=== PATIENT | female | born 1985 | race Caucasian/White ===

== ENCOUNTER 2016-10-01 16:02 | Day surgery (SDC) | payer OTHER ==
[2016-10-01] VITALS (7 sets, daily range): BP systolic 108–122; BP diastolic 59–73; PULSE 64–103; RESP 16–21; O2SAT 99–100
[~2016-10-01] VITALS: Ht 165.1 cm; Wt 60.6 kg
[~2016-10-01 16:02] MED LIST: BCP
[2016-10-01] MEDS ORDERED: fentaNYL-PF 50 mCg/mL 2 mL Inj ONE (16:03)
[2016-10-01] MEDS ORDERED: EPHEDrine/NS 5 mg/mL 5 mL Syringe ONE (16:03)
[2016-10-01] MEDS ORDERED: Succinylcholine Chloride 20 mg/mL 5 mL Inj ONE (16:03)
[2016-10-01] MEDS ORDERED: Propofol 10,000 mCg/mL 20 mL Inj ONE (16:03)
[2016-10-01] MEDS ORDERED: Phenylephrine/NS 100 mCg/mL 10 mL Syringe IVPUSH ONE (16:03)
[2016-10-01] MEDS ORDERED: Dexamethasone 4 mg/mL Inj ONE (16:03)
[2016-10-01] MEDS ORDERED: Lidocaine PF 1% 30 mL Inj ONE (16:03)
[2016-10-01] MEDS ORDERED: MetoCLOpramide 5 mg/mL 2 mL Inj ONE (16:03)
[2016-10-01] MEDS ORDERED: Ondansetron 2 mg/mL 2 mL Inj ONE (16:03)
[2016-10-01] MEDS ORDERED: Lactated Ringer's 1,000 ML IV ONE ×2 (16:20→17:14)
[2016-10-01] MEDS ORDERED: PNV1TABL81 PO (16:26)
[2016-10-01] MEDS ORDERED: Lactated Ringer's 1,000 ML IV SCH (17:14)
[2016-10-01] MEDS ORDERED: Lactated Ringer's 500 ML IV PRN (17:14)
--- NOTE | 2016-10-01 17:14 | PCM.HPANE ---
Patient Data Date of Service: Oct 01, 2016 Surgeon Admitting Provider: Attending Provider:Chandan Abebe MD Primary Care Physician:Swetha Taylor Other Provider:Eloina Moore Anesthesia Reason for Visit Missed Ab D&C Ht/WT & BMI Height (Feet): 5 Height (Inches): 5 Weight (Kilograms): 60.6 Body Mass Index 22.00, 22.00 Allergies Coded Allergies: No Known Allergies (Unverified , 10/01/16) Past Anesthesia History Anesthesia History: Denies:: Abnormal Airway, Anesthesia Reactions, Difficult Intubation, Fam Anesthesia Reaction, Fam Malignant Hypertherm, Malignant Hyperthermia Diabetes History Hx Diabetes?: No MRSA MRSA: No Medications Hypertension Medication: No Home Meds Incl Beta Dann: No Reported Medications Pnv No.122/Iron/Folic Acid ( Multi Tablet)27 Mg Iron-800 Mcg Tablet1 Each PO DAILY 10/01/16 [Bcp] No Conflict Check 02/10/13 History History of ENT Problems?: No HEENT History: Denies:: Abnormal Airway Cataracts Difficult Intubation Dysphagia Glaucoma Hearing Problem Sinus Problem TMJ Hx of Heart Problems?: No Cardiovascular History: Denies:: AICD Abdominal Aortic Aneurism Atrial Fibrillation Cardiac Surgery Chest Pain Congestive Heart Failure Coronary Artery Disease Edema Heart Murmur Hypertension Irregular Heartbeat Pacemaker Peripheral Vascular Rheumatic Fever Thrombophlebitis Valvular Heart Disease Hx of Respiratory Problem?: No Respiratory History: Denies:: Asthma COPD Chest Surgery Cough Dyspnea Emphysema Hemoptysis Oxygen Administration Pneumonia Pulmonary Embolism Tuberculosis Use of C-PAP Machine Use of Inhalers / NEBS Hx Neurologic Problems?: No Neurological History: Denies:: Alzheimer's Disease CVA Dementia Dizziness Headaches Multiple Sclerosis Parkinson's Disease Seizures TIA Hx of GI Problems?: No Gastrointestinal History: Denies:: Cirrhosis Diverticulitis Gall Bladder Disease Gastroesphageal Reflux Gastrointestinal Bleeding Heartburn Hepatitis Hiatal Hernia Liver Disease Rectal Bleeding Hx of Problems?: No Genitourinary History: Denies:: HX of Hemodialysis Kidney Stones Urinary Tract Infection HX of Peritoneal Dialysis: No Female Hx: Positive for:: Currently (Missed AB) Endometriosis (UTERINE FIBROIDS) Denies:: Pelvic Inflammatory Problems with Breasts? Hx Musculoskeletal Problems?: No Musculoskeletal History: Denies:: Back Injury Degenerative Joint Fibromyalgia Joint Replacement Musculoskeletal Trauma Myasthenia Gravis Osteoarthritis Rheumatoid Arthritis Systemic Lupus Hx of Psycho/Social Problems?: No Psycho Social History: Positive for:: Hx Depression (JUVENILE DEPRESSION RESOVLED) Denies:: Anxiety Bipolar Disorder Suicide Attempt Hx Surgeries?: Yes (TONSILECTOMY, SEPTOPLASTY, MELANOMA ON BACK) Hx Any Other Health Problems?: No Other History: Denies:: Cancer Endocrine Disease Thyroid Disease History Blood Transfusions: Positive for:: Accept Blood Products? Denies:: Blood Transfuse Reaction Blood Transfusions Hx Diabetes: No Hx Alcohol Use: NoAlcoholic Drinks Per Day: SOCIALLYHx Substance Use: NoHave You Smoked inLast 12 mo: No Stop/Bang Treated for Sleep Apnea?: No Do You Have a CPAP Machine?: No S-Snoring: Do You Snore Loudly: No T-Tired: feel tired, fatigued: No O-Obsered: Observed not breath: No P-Blood Pressure: treated: No B- Body Mass Index > 35 kg/m2: No A- Age over 50: No N- Neck Large Circumference: No G- Gender Male: No RENATO Total Score: 0 RENATO Risk Assessment: Low Risk, <3 Yes Risk Assessment Category Category 1A: Patient has history of documented sleep apnea, and HAS NOT received any narcotic, sedative or anesthesia administration during this stay. Category 1B: Patient has history of documented sleep apnea, and HAS received any narcotic , sedative or anesthesia administration during this stay Category 2: Patient has SUSPECTED Obstructive Sleep Apnea, and HAS received any narcotic , sedative or anesthesia administration during this stay. Category 3: Patient has SUSPECTED Obstructive Sleep Apnea and HAS NOT received narcotic, sedative or anesthesia administration during this stay. Category 4: Outpatient in Procedural Areas with known sleep apnea or who screen positive for High Risk via the STOP/BANG questionnaire. Exam Exam Vital Signs Vital Signs Date Time Temp Pulse Resp B/P Pulse Ox O2 Delivery O2 Flow Rate FiO2 10/01/16 16:15 36.3 64 16 112/70 100 Room Air General Appearance: Alert, Oriented X3, Cooperative HEENT/AIRWAY: MP 1, Neck Movement (Full) Lungs: Clear to Auscultation, Normal Air Movement Heart: Regular Rate/Rhythm, Normal S1, Normal S2 Meds/Labs/Diagnostics Admission Meds Current Medications Lactated Ringer's (Lr) 1,000 ml @ ud STK-MED ONCE IV Last administered on 10/01t 16:20; Start 10/01/16 at 16:20; Stop 10/01/16 at 16:25; Status DC Doxycycline Hyclate (VibraTabs) 100 mg STK-MED ONCE .ROUTE Last administered on 10/01/16t 16:55; Start 10/01/16 at 16:53; Stop 10/01/16 at 16:54; Status DC Plan Impression Patient chart reviewed, patient interviewed and anesthestic plan with risks, benefits, and alternatives discussed, and informed consent obtained. NPO Status: 0900 10/01 ASA Physical Status: ASA1 Normal Healthy Anesthetic Plan: GA Bene/Risks/Altern/Consents: Yes HP Complete Prior to Induction: Yes Xander Gordon MD Oct 01, 2016 17:14
[2016-10-01] MEDS ORDERED: Dexamethasone 4 mg/mL Inj IVPUSH PRN (17:15)
[2016-10-01] MEDS ORDERED: fentaNYL-PF 50 mCg/mL 2 mL Inj IVPUSH PRN (17:15)
[2016-10-01] MEDS ORDERED: Phenylephrine 10,000 mCg/mL Inj IVPUSH PRN (17:15)
[2016-10-01] MEDS ORDERED: EPHEDrine Sulfate 50 mg/mL Inj IVPUSH PRN (17:15)
[2016-10-01] MEDS ORDERED: MetoCLOpramide 5 mg/mL 2 mL Inj IVPUSH PRN (17:15)
[2016-10-01] MEDS ORDERED: Labetalol 5 mg/mL 4 mL Inj IV PRN (17:15)
[2016-10-01] MEDS ORDERED: hydrALAZINE 20 mg/mL Inj IVPUSH PRN (17:15)
[2016-10-01] MEDS ORDERED: Ondansetron 2 mg/mL 2 mL Inj IVPUSH PRN ×2 (17:15→17:50)
[2016-10-01] MEDS ORDERED: HYDROmorphone 1 mg/mL Inj IVPUSH PRN (17:15)
[2016-10-01] MEDS ORDERED: Atropine 0.4 mg/mL Inj IVPUSH PRN (17:15)
--- NOTE | 2016-10-01 17:41 | PCM.ANEP1 ---
Post Anesthesia Phase 1 PACU Phase 1 Assessment Date of Service: Oct 01, 2016 Vital Signs PACU: T 37.3, HR 100, RR 19, BP 119/72, O2 100% 10L Vital Signs Date Time Temp Pulse Resp B/P Pulse Ox O2 Delivery O2 Flow Rate FiO2 10/01/16 16:15 36.3 64 16 112/70 100 Room Air Anesthetic Administered: MAC Level of Alertness: Awake, talking FRIED's with Equal Strength: Yes Pain: Yes (cramping) Nausea or Vomiting: No Oxygen Delivery: Simple Mask Lungs: Normal Air Movement Xander Gordon MD Oct 01, 2016 17:41
--- NOTE | 2016-10-01 17:49 | PCM.DIMED ---
Discharge Instructions Date of Service Oct 01, 2016 Dates of Hospitalization Diet No restrictions Activity No restrictions Call your provider Fever or Chills, Shortness of breath, Bleeding, Vomitting, Excessive diarrhea, Weakness (unilateral) Patient Instructions Follow-up with PCP in: 2 weeks Chandan Abebe MD Oct 01, 2016 17:49
[2016-10-01] MEDS ORDERED: diphenhydrAMINE 25 mg Capsule PO PRN (17:50)
[2016-10-01] MEDS ORDERED: oxyCODONE-Acetamin 5-325 mg Tablet PO PRN (17:50)
--- NOTE | 2016-10-01 19:07 | OP ---
[address] [address] OPERATIVE REPORT PATIENT: SHARON RAMAN : 1985 MR#: [id number] ADMIT: 10/01/2016 JOB ID: [id number] DATE OF SURGERY: 10/01/2016 PROCEDURE: Suction dilation and curettage. PREOPERATIVE DIAGNOSIS(ES): Missed . POSTOPERATIVE DIAGNOSIS(ES): Missed . SURGEON: Chandan Abebe MD ANESTHESIA: General. ESTIMATED BLOOD LOSS: 100 mL ESTIMATED URINE OUTPUT: 100 mL. ESTIMATED FLUIDS: 900 mL of lactated Ringer. COMPLICATIONS: None. FINDINGS: Uterus about eight weeks in size, midposition, mobile. Normal cervix, normal vagina, and normal perineum. INDICATION FOR THE PROCEDURE: The patient is a 31-year-old, 1, para 0, who was supposed to be 12 weeks and two days today. She had a 2nd first-trimester ultrasound because of vaginal bleeding and cramps that confirmed a nonviable with no heart rate seen. Prior ultrasound August 27, 2016 showed heart rate 151 beats per minute. The patient opted to have surgical treatment of her condition. DESCRIPTION OF PROCEDURE: The patient was brought to the operating room, where she underwent general anesthesia without difficulty. She received preoperative antibiotics. A time-out was performed verifying the correct patient and correct procedure. The patient was placed in the dorsal lithotomy position using the candy-cane stirrups. Two Martinez speculums were placed in the vagina. The cervix was identified and grasped with a tenaculum. Using Hegar dilators it was dilated to the size of 9 mm. Using an 8 mm curved suctioning curette, suctioning D and C was performed. Then, with a mid-sized sharp curette, the cornua of the uterus and the rest of the uterus was checked to reassure that no products of conception were left. The patient had slightly excessive bleeding that was controlled with one dose of Methergine 0.2 mg IM. Good hemostasis was achieved. All the instruments were removed. Two points of blood oozing from the insertion of the tenaculum where addressed with application of silver nitrate sticks. The patient was repositioned back into the supine position. She tolerated the procedure well and was transferred to the recovery room in stable condition.
--- NOTE | 2016-10-04 15:39 | PCM.ANEP2 ---
Post Anesthesia Evaluation ASA/CMS Post Anesthesia Date of Service: Oct 01, 2016 VS in Patient's Normal Range?: Yes Resp Stable; Airway Patent?: Yes CV Function & Hydration Stable: Yes Mental Status Recovered?: Yes Pain control Satisfactory?: Yes N/V Control Satisfactory?: Yes Xander Gordon MD Oct 04, 2016 15:39
--- NOTE | 2016-10-05 11:07 | PATH ---
SURGICAL PATHOLOGY Attending Physician:Chandan Abebe MD CASE STATUS: Signed Out PATIENT NAME: SHARON RAMAN PID: [id number] : 1985 DATE COLLECTED:10/01/2016 23:48 SPECIMEN: Uterine Contents CLINICAL HISTORY: MISSED 1). UTERINE CONTENTS, PRODUCTS OF CONCEPTION FINAL DIAGNOSIS: 1.UTERINE CONTENTS (PRODUCTS OF CONCEPTION): IMMATURE PLACENTAL TISSUE WITH AVASCULAR CHORIONIC VILLI. ICD10 CODE O02.1 GROSS DESCRIPTION: The specimen is received in one formalin filled container labeled with the patient's name, sublabeled "uterine contents" and consists of multiple portions of tissue and blood which aggregate to 6.0 x 6.0 x 1.6 CM at no grossly recognizable parts are observed. Carton Inspector sections are submitted in 2 cassettes. 10/02/2016 [facility] MICRO DESCRIPTION: See diagnosis. ICD-9 CODES: CPT CODES: 1: 91604 Electronically Signed Out Martin Bob MD [facility] Pathology [facility] [address], [place] [address] Technical component performed at [facility], [facility] [address], [place], [address]
== END 2016-10-01 23:59 | disposition home or self-care (01) ==
LOC: SAS 16:02
PROVIDERS: ATTEND Legal Medicine
DX: O02.1 Missed abortion (principal); D25.9 Leiomyoma of uterus, unspecified
CPT/HCPCS: 59820; J0330; J1100; J1885; J2250; J2370; J2405; J2765; J3010; J7120